=== PATIENT | female | born 1995 | race American Indian/Alaskan Native ===

== ENCOUNTER 2019-01-11 22:17 | Inpatient (IN) | payer BC, OTHER ==
[2019-01-11] MEDS ORDERED: LACTATED RINGERS 1,000 ML ONE (23:03)
[2019-01-11] MEDS ORDERED: LACTATED RINGERS 1,000 ML IV ONE (23:06)
[2019-01-11 23:49] LABS: Bilirubin,Urine NEG (Negative); Blood,Urine NEG (Negative); Color,Urine Yellow (Yellow); Mucus,Urine FEW /HPF; RBC,Urine < 1.0 /HPF (0.0-6.0)
[2019-01-11 23:55] LABS: Amphetamine Screen,Urine PRESUMPTIVE NEGATIVE; Benzodiazepines Screen,Urine PRESUMPTIVE NEGATIVE; Cannabinoid Screen,Urine PRESUMPTIVE NEGATIVE; Cocaine Screen,Urine PRESUMPTIVE NEGATIVE; Methadone Screen,Urine PRESUMPTIVE NEGATIVE; Opiate Screen,Urine PRESUMPTIVE NEGATIVE
[2019-01-12] MEDS ORDERED: ePHEDrine SULFATE 50 MG/1 ML INJ IV PRN (00:07)
[2019-01-12] MEDS ORDERED: LIDOCAINE (2%) 20 MG/1 ML VIAL 20 ML MDV INFILTRATI ONE (00:07)
[2019-01-12] MEDS ORDERED: TERBUTALINE 1 MG/1 ML INJ SUB-Q PRN (00:07)
[2019-01-12] MEDS ORDERED: fentaNYL 100 MCG/2 ML INJ IV PRN (00:07)
--- NOTE | 2019-01-12 00:19 | History and Physical Report ---
History of Present Illness Date of examination: 01/12/19 Date of admission: 01/12/19 Chief complaint: Elevated blood pressure; R/O SROM. History of present illness: 24 year old at 39 5/7 weeks gestation with elevated blood pressure, oligohydramnios, and obesity. Patient complains of possible LOF beginning this evening on several occasions; states she has felt the "leaking" once since she arrived here in L&D. Patient denies vaginal bleeding. Patient reports active movement. Patient denies headaches, visual disturbance, nausea or vomiting, abdominal or epigastric pain. She denies foul smelling vaginal discharge. Denies recent IC. Patient received care at [facility] and was able to access records via computer. LMP 04/09/18. EDC 01/14/19 (confirmed by 9 week, 3 day US). significant for the following: obesity, prehypertension prior to and throughout , elevated blood pressures at term, anemia (supplemented with iron), history of seizures as a child (none since age 16 and not on meds), asthma (uses Proventil inhaler as needed), and GBS positive. labs are as follows: A+, antibody screen negative, rubella immune, hepatitis B surface antigen negative, HIV negative, RPR nonreactive, chlamydia negative, gonorrhea negative, trichomonas negative, GBS positive, hemoglobin electrophoresis normal, quad screen negative, 1 hour sugar test 96. Past History Past Medical History: asthma, seizure (seizure disorder as a child (has not had a seizure or been on seizure meds since age 16)), other (obesity; severe penicillin allergy) Past Surgical History: no surgical history [facility] History: denies: abnormal PAP smear, chlamydia, gonorrhea, hepatitis B, hepatitis C, herpes, HIV, syphilis, trichomonas Family/Genetic History: none Social history: single, lives with family, full code. denies: smoking, alcohol abuse, prescription drug abuse, IV drug use - Obstetrical History Expected Date of Delivery: 01/14/19 Actual Gestation: 39 Week(s) 5 Day(s) : 1 Para: 0 Hx # Term Pregnancies: 0 Number of Pregnancies: 0 Spontaneous Abortions: 0 Induced : 0 Number of Living Children: 0 Medications and Allergies Allergies Allergy/AdvReac Type Severity Reaction Status Date / Time Penicillins Allergy Rash Verified 01/11/19 23:04 sulfur dioxide Allergy Rash Verified 01/11/19 23:04 Active Meds: Active Medications Ephedrine Sulfate (Ephedrine Sulfate) 10 mg IV Q2M PRN PRN Reason: Hypotension Fentanyl (Sublimaze) 100 mcg IV Q2H PRN PRN Reason: Labor Pain Oxytocin/Sodium Chloride (Pitocin/Ns 20 Unit/1000ml Drip) 20 units in 1,000 mls @ 125 mls/hr IV DIRECT ARNOLD Lactated Ringer's (Lactated Ringers) 1,000 mls @ 125 mls/hr IV DIRECT ARNOLD Lidocaine (Xylocaine 2%) 20 ml INFILTRATI ONCE ONE Stop: 01/12/19 00:08 Terbutaline Sulfate (Brethine) 0.25 mg SUB-Q ONCE PRN PRN Reason: Hyperstimulation/Hypertonicity Review of Systems All systems: negative (contractions and possible leaking of water) Gastrointestinal: no abdominal pain, no nausea, no vomiting Genitourinary: leakage of fluid, contractions, no vaginal bleeding, no vaginal discharge (denies foul smelling discharge), no dysuria, no genital sores Neurological: no headaches, no double vision, no loss of vision Allergic/Immunologic: no wheezing - Vital Signs Vital signs: Vital Signs Temp Pulse Resp BP Pulse Ox 98.5 F 87 18 147/78 100 01/11/19 22:30 01/11/19 22:30 01/11/19 22:30 01/11/19 22:30 01/11/19 22:30 Temp Pulse Resp BP Pulse Ox 98.5 F 96 H 18 150/81 93 01/11/19 22:30 01/11/19 23:37 01/11/19 22:30 01/11/19 23:37 01/11/19 23:02 - Physical Exam Cardiovascular: Regular rate, Normal S1, Normal S2, No murmurs Lungs: Positive: Clear to auscultation Abdomen: Positive: normal appearance, soft. Negative: distention, tenderness, guarding, rigidity Genitourinary (Female): Positive: normal external genitalia, normal perenium. Negative: perineal/vulvar lesions (no lesions seen on careful exam with bright light upon admission) Vagina: Positive: normal moisture (speculum exam performed; no pooling; white discharge seen; negative fern test) Uterus: Positive: enlarged (s=d). Negative: tender Anus/Rectum: Positive: normal perianal skin Extremities: Positive: normal, edema (mild edema BLE). Negative: tenderness - Obstetrical FHR: category 2 (mild tachycardia upon presentation (170-180), resolved; brief variable FHR decelerations) Uterine Contraction Monitor Mode: External Cervical Dilatation: 0 Cervical Effacement Percentage: 30 station: -3 Uterine Contraction Pattern: Irregular Uterine Contraction Intensity: Mild Results Result Diagrams: 01/11/19 23:15 01/11/19 23:15 All other labs normal. Assessment and Plan A: at 39 weeks, 5 days gestation. Oligohydramnios. Elevated blood pressures: PIH versus chronic hypertension. Obesity. Maternal fever (100.5) and mild tachycardia ( tachycardia has now resolved). GBS positive. Severe PCN allergy. P: Admit. IV hydration. IV antibiotics (Vancomycin and Gentamicin since severe PCN allergy). PO Tylenol. UA, urine C&S, CBC, GC/CT testing. Continuous EFM. Preeclamptic labs. Serial BP monitoring. Cervical ripening and IOL. GBS prophylaxis (Vancomycin). Discussed with patient in detail risks and benefits of Pitocin cervical ripening and induction of labor. Patient consented to Pitocin cervical ripening and induction of labor. Discussed with patient fever, maternal tachycardia and interventions being undertaken. Consulted with Dr. Hoyt re: this patient, FHR tracing/tachycardia, maternal fever, possible SROM/oligohydramnios, interventions taken and antibiotics ordered. Dr. Hoyt states he agrees with current management plan; he states OK to proceed with low dose Pitocin for cervical ripening at this time. Plan of care also discussed with patient and family.
[2019-01-12] MEDS ORDERED: OXYTOCIN 20 UNIT/1000ML DRIP 20 UNITS/1,000 ML BAG IV SCH (01:00)
[2019-01-12 01:03] LABS: Hemoglobin 11.1 gm/dl (10.1-14.3); Mean Corpuscular HGB Conc 33 % (30-34); Mean Corpuscular Volume 76 fl (79-97); Platelet Count 346 K/mm3 (140-440); Red Blood Count 4.45 M/mm3 (3.65-5.03); Red Cell Distribution Width 14.5 % (13.2-15.2)
[2019-01-12 01:30] LABS: Alanine Aminotransferase 10 units/L (7-56); Albumin 3.3 g/dL (3.9-5); BUN/Creatinine Ratio 9; Blood Urea Nitrogen 6 mg/dL (7-17); Calcium 8.6 mg/dL (8.4-10.2); Hemolysis Index 8
[2019-01-12] MEDS ORDERED: GENTAMICIN 100 MG in SODIUM CHLORIDE 0.9% 100 ML IV SCH (01:30)
[2019-01-12 01:43] LABS: Uric Acid 5.2 mg/dL (3.5-7.6)
[2019-01-12] MEDS ORDERED: ACETAMINOPHEN 325 MG TAB PO ONE (01:49)
--- NOTE | 2019-01-12 01:57 | Ultrasound Report ---
ULTRASOUND OBSTETRIC, LIMITED, WITH BIOPHYSICAL PROFILE INDICATION / CLINICAL INFORMATION: Tachycardia. Clinical Gestational Age (GA): 39 weeks TECHNIQUE: Transabdominal. COMPARISON: None available. FINDINGS: There is a single intrauterine . Heart Rate: 157 beats per minute. Position: cephalic. Placenta: anterior and free of the os. Amniotic Fluid Volume: Low normal Amniotic Fluid Index (ATA) in cm (if calculated): 5.9 cm. Maternal Adnexa: No significant abnormality. Biophysical profile: breathing movements: 2 movements: 2 posture and tone: 2 Qualitative amniotic fluid volume: 0 Total score: 6 out of 8 IMPRESSION: 1. Single, living intrauterine . 2. Limited evaluation with an amniotic fluid index of 5.9 cm, and a biophysical profile of 6 out of 8 . Signer Name: Estefani Preciado MD Signed: 01/12/2019 1:52 AM Workstation Name: [id number]
[2019-01-12] MEDS ORDERED: VANCOMYCIN/NS 1 GM/250 ML 1 GM/250 ML BAG IV SCH (02:00)
[2019-01-12] MEDS: LACTATED RINGERS 1,000 ML IV SCH ×3 (02:04→19:50)
[2019-01-12] MEDS ORDERED: OXYTOCIN DRIP 30 UNITS/500 ML BAG IV SCH (03:00)
[2019-01-12] MEDS ORDERED: GENTAMICIN/NS 100 MG/100 ML 100 MG/100 ML BAG IV SCH (04:00)
[2019-01-12 08:37] LABS: Bacteria,Urine 1+ /HPF (Negative); Bilirubin,Urine NEG (Negative); Blood,Urine NEG (Negative); Color,Urine Straw (Yellow); Mucus,Urine FEW /HPF; Protein,Urine <15 mg/dL mg/dL (Negative); Urobilinogen,Urine < 2.0 mg/dL (<2.0)
--- NOTE | 2019-01-12 09:25 | Progress Note ---
Assessment and Plan A: at 39 5/7 weeks. Oligohydramnios. PIH. Maternal fever (currently has normal temperature), on antibiotics. Obesity. P: Continue IV antibiotics. Continue Pitocin for cervical ripening. Continuous EFM. Vital sign monitoring. Awaiting results of urine C&S and GC/CT testing. Subjective - Subjective Date of service: 01/12/19 Principal diagnosis: at 39 5/7 weeks; oligohydramnios, fever, PIH Interval history: at 39 5/7 weeks is undergoing cervical ripening and induction of labor due to oligohydramnios, fever, and PIH. Patient is receiving IV antibiotics. Urine C&S and GC/CT pending. Flu swab negative. Platelet count and AST/ALT normal. Urine protein is trace to 1+. BPs have been stable overnight and temperature is now normal. FHR tracing is category 1. Patient is receiving low dose Pitocin for cervical ripening and she is having mild irregular contractions. Uterus palpates soft between contractions. Patient states she has not felt any more "fluid" leak from vagina. She denies VB. Patient reports: movement normal, contractions, no new complaints, no loss of fluid, no vaginal bleeding Objective - Vital Signs Vital Signs: Vital Signs - 12hr 01/11/19 01/11/19 01/11/19 22:30 22:32 22:37 Temperature 98.5 F Pulse Rate 87 86 90 Respiratory 18 Rate Blood Pressure 147/78 Blood Pressure 147/78 [Left] O2 Sat by Pulse 100 100 100 Oximetry 01/11/19 01/11/19 01/11/19 22:42 22:47 22:52 Temperature Pulse Rate 93 H 97 H 99 H Respiratory Rate Blood Pressure Blood Pressure [Left] O2 Sat by Pulse 100 100 98 Oximetry 01/11/19 01/11/19 01/11/19 22:57 23:02 23:37 Temperature Pulse Rate 97 H 100 H 96 H Respiratory Rate Blood Pressure 150/81 Blood Pressure [Left] O2 Sat by Pulse 98 93 Oximetry 01/12/19 01/12/19 01/12/19 00:54 01:20 02:28 Temperature 100.5 F H Pulse Rate 90 92 H Respiratory 18 Rate Blood Pressure 136/85 126/61 Blood Pressure [Left] O2 Sat by Pulse Oximetry 01/12/19 01/12/19 01/12/19 04:01 04:04 07:15 Temperature 98.6 F 98.5 F Pulse Rate 84 84 84 Respiratory 18 18 Rate Blood Pressure 126/67 Blood Pressure 126/67 108/67 [Left] O2 Sat by Pulse Oximetry 01/12/19 07:24 Temperature Pulse Rate 84 Respiratory Rate Blood Pressure 108/67 Blood Pressure [Left] O2 Sat by Pulse Oximetry - Exam Abdomen: Present: normal appearance, soft. Absent: distention, tenderness, guarding, rigidity FHR: category 1 Uterine Contraction Monitor Mode: External Uterine Contraction Pattern: Irregular Uterine Contraction Intensity: Mild Extremities: normal - Labs Labs: Abnormal Labs 01/11/19 01/11/19 23:15 23:15 MCV 76 L MCH 25 L BUN 6 L Glucose 108 H Lactate Dehydrogenase 195 H Albumin 3.3 L Laboratory Results - last 24 hr 01/11/19 01/11/19 01/11/19 23:05 23:05 23:15 WBC 8.2 RBC 4.45 Hgb 11.1 Hct 34.0 MCV 76 L MCH 25 L MCHC 33 RDW 14.5 Plt Count 346 Sodium Potassium Chloride Carbon Dioxide Anion Gap BUN Creatinine Estimated GFR BUN/Creatinine Ratio Glucose Uric Acid Calcium Total Bilirubin AST ALT Alkaline Phosphatase Lactate Dehydrogenase Total Protein Albumin Albumin/Globulin Ratio Urine Color Yellow Urine Turbidity Slightly-cloudy Urine pH 6.0 Ur Specific [place] 1.019 Urine Protein 30 mg/dl Urine Glucose (UA) Neg Urine Ketones Neg Urine Blood Neg Urine Nitrite Neg Urine Bilirubin Neg Urine Urobilinogen 2.0 Ur Leukocyte Esterase Sm Urine WBC (Auto) 2.0 Urine RBC (Auto) < 1.0 U Epithel Cells (Auto) 5.0 Urine Bacteria (Auto) Urine Mucus Few Urine Opiates Screen Presumptive negative Urine Methadone Screen Presumptive negative Ur Barbiturates Screen Presumptive negative Ur Phencyclidine Scrn Presumptive negative Ur Amphetamines Screen Presumptive negative U Benzodiazepines Scrn Presumptive negative Urine Cocaine Screen Presumptive negative U Marijuana (THC) Screen Presumptive negative Drugs of Abuse Note Disclamer Influenza A (Rapid) Influenza B (Rapid) Blood Type Antibody Screen 01/11/19 01/11/19 01/12/19 23:15 23:15 07:32 WBC RBC Hgb Hct MCV MCH MCHC RDW Plt Count Sodium 139 Potassium 3.9 Chloride 105.2 Carbon Dioxide 22 Anion Gap 16 BUN 6 L Creatinine 0.7 Estimated GFR > 60 BUN/Creatinine Ratio 9 Glucose 108 H Uric Acid 5.2 Calcium 8.6 Total Bilirubin < 0.20 AST 15 ALT 10 Alkaline Phosphatase 124 Lactate Dehydrogenase 195 H Total Protein 7.2 Albumin 3.3 L Albumin/Globulin Ratio 0.8 Urine Color Urine Turbidity Urine pH Ur Specific [place] Urine Protein Urine Glucose (UA) Urine Ketones Urine Blood Urine Nitrite Urine Bilirubin Urine Urobilinogen Ur Leukocyte Esterase Urine WBC (Auto) Urine RBC (Auto) U Epithel Cells (Auto) Urine Bacteria (Auto) Urine Mucus Urine Opiates Screen Urine Methadone Screen Ur Barbiturates Screen Ur Phencyclidine Scrn Ur Amphetamines Screen U Benzodiazepines Scrn Urine Cocaine Screen U Marijuana (THC) Screen Drugs of Abuse Note Influenza A (Rapid) Negative Influenza B (Rapid) Negative Blood Type A POSITIVE Antibody Screen Negative 01/12/19 07:58 WBC RBC Hgb Hct MCV MCH MCHC RDW Plt Count Sodium Potassium Chloride Carbon Dioxide Anion Gap BUN Creatinine Estimated GFR BUN/Creatinine Ratio Glucose Uric Acid Calcium Total Bilirubin AST ALT Alkaline Phosphatase Lactate Dehydrogenase Total Protein Albumin Albumin/Globulin Ratio Urine Color Straw Urine Turbidity Slightly-cloudy Urine pH 7.0 Ur Specific [place] 1.006 Urine Protein <15 mg/dl Urine Glucose (UA) Neg Urine Ketones Neg Urine Blood Neg Urine Nitrite Neg Urine Bilirubin Neg Urine Urobilinogen < 2.0 Ur Leukocyte Esterase Tr Urine WBC (Auto) 3.0 Urine RBC (Auto) 4.0 U Epithel Cells (Auto) 4.0 Urine Bacteria (Auto) 1+ Urine Mucus Few Urine Opiates Screen Urine Methadone Screen Ur Barbiturates Screen Ur Phencyclidine Scrn Ur Amphetamines Screen U Benzodiazepines Scrn Urine Cocaine Screen U Marijuana (THC) Screen Drugs of Abuse Note Influenza A (Rapid) Influenza B (Rapid) Blood Type Antibody Screen
--- NOTE | 2019-01-12 10:54 | Event Note ---
Date: 01/12/19 Patient remains afebrile. Will discontinue Gentamicin; discussed with nurses and patient and MD. Will continue Vancomycin for GBS prophylaxis.
[2019-01-12] MEDS ORDERED: diphenhydrAMINE 25 MG CAP PO PRN (14:01)
--- NOTE | 2019-01-12 14:04 | Event Note ---
Date: 01/12/19 Patient reports generalized itching and a rash on both legs. Rash resembles hives, present on both lower extremities. Possible allergy to Vancomycin. Discontinued Vancomycin due to possible allergic reaction. Patient states she has taken Clindamycin in the past and has never had any reaction to it. Clindamycin ordered. Nurses and patient informed.
--- NOTE | 2019-01-12 15:04 | Event Note ---
Date: 01/12/19 SVE 2.
[2019-01-12] MEDS: OXYTOCIN DRIP 30 UNITS/500 ML BAG IV SCH ×3 (17:30→18:51)
--- NOTE | 2019-01-13 02:15 | Event Note ---
Date: 01/13/19 Patient is receiving Pitocin for cervical ripening and induction of labor. Cervix is now 1/70/-2. Contractions are every 2-3 minutes and palpate mild to moderate. Uterus palpates soft between contractions. Reassuring heart rate tracing. Patient is receiving Clindamycin. Current temp. is 98.7 degrees orally. No leaking of fluid or vaginal bleeding seen. Fetus is moving well.
--- NOTE | 2019-01-13 05:54 | Event Note ---
Date: 01/13/19 Patient reports she now feels contractions about every 3 minutes and they are beginning to hurt. Denies any leakage of fluid or VB. Pt. remains afebrile. SVE 1.5/70/-2/much softer than last exam. Contractions every 2-3 minutes. Uterus palpates soft between contractions. Minimal variability now noted, normal FHR baseline, 3 late decelerations noted. Patient repositioned into right lateral position and oxygen applied per face mask. Pitocin discontinued. Updated Dr. Hoyt on patient status and interventions taken. Will observe closely for resol ution.
[2019-01-13] MEDS: LACTATED RINGERS 1,000 ML IV SCH (05:58)
[2019-01-13] MEDS: OXYTOCIN DRIP 30 UNITS/500 ML BAG IV SCH (09:15)
[2019-01-13] MEDS ORDERED: ALBUTEROL 8.5 GM INHALATION IH PRN (09:41)
--- NOTE | 2019-01-13 09:52 | Progress Note ---
Subjective - Subjective Date of service: 01/13/19 Principal diagnosis: at 39 5/7 weeks; oligohydramnios, fever, PIH Interval history: Patient seen and examined on AM rounds. She is sitting up, comfortable, oxytocin off. no complaints. O:(see below) Cervix 1cm/long (~4cm)/-3 FHT at bedside, tracing reassuring. 150 baseline, +ve accelerations. Review of tracing reveals occasional late decelerations to a nidus of 120bpm lasting < 1 minute with return to baseline. Vital Signs - 12hr 01/12/19 01/12/19 01/13/19 22:28 23:43 05:57 Temperature Pulse Rate 88 90 88 Respiratory Rate Blood Pressure 129/70 116/71 121/69 O2 Sat by Pulse Oximetry 01/13/19 01/13/19 01/13/19 07:20 08:00 08:46 Temperature 98.7 F Pulse Rate 78 88 Respiratory 14 Rate Blood Pressure 130/73 O2 Sat by Pulse 96 Oximetry 01/13/19 01/13/19 01/13/19 08:51 08:56 08:59 Temperature Pulse Rate 85 82 78 Respiratory Rate Blood Pressure 121/69 O2 Sat by Pulse 98 99 Oximetry 01/13/19 01/13/19 01/13/19 09:01 09:10 09:15 Temperature Pulse Rate 84 110 H 77 Respiratory Rate Blood Pressure O2 Sat by Pulse 99 99 99 Oximetry 01/13/19 01/13/19 01/13/19 09:20 09:25 09:30 Temperature Pulse Rate 81 82 90 Respiratory Rate Blood Pressure O2 Sat by Pulse 99 99 98 Oximetry 01/13/19 01/13/19 09:37 09:42 Temperature Pulse Rate 79 94 H Respiratory Rate Blood Pressure O2 Sat by Pulse 98 99 Oximetry A: IOL P: Maternal/ well being reassuring overall. Plan for cervidil x1. Discussed with Pharmacy: patient report PMHX of asthma however she only occasionally uses an albuterol inhaler and has not had need for use for over one month. Cervidil use with caution in Asthma patients. Plan for bedside nebulizer and close monitoring of patient. I feel that patient requires cervical softening with cervidil. I believe she will not progress with her IOL oxytocin alone. I discussed this plan of care with patient, her mother at bedside and appropriate CNM and labor nursing staff. I also explained to patient and family that if cervidil is not successful we will proceed to delivery. Jorge L ALANIZ Patient reports: movement normal, contractions, no new complaints, no loss of fluid, no vaginal bleeding Objective - Vital Signs Vital Signs: Vital Signs - 12hr 01/12/19 01/12/19 01/13/19 22:28 23:43 05:57 Temperature Pulse Rate 88 90 88 Respiratory Rate Blood Pressure 129/70 116/71 121/69 O2 Sat by Pulse Oximetry 01/13/19 01/13/19 01/13/19 07:20 08:00 08:46 Temperature 98.7 F Pulse Rate 78 88 Respiratory 14 Rate Blood Pressure 130/73 O2 Sat by Pulse 96 Oximetry 01/13/19 01/13/19 01/13/19 08:51 08:56 08:59 Temperature Pulse Rate 85 82 78 Respiratory Rate Blood Pressure 121/69 O2 Sat by Pulse 98 99 Oximetry 01/13/19 01/13/19 01/13/19 09:01 09:10 09:15 Temperature Pulse Rate 84 110 H 77 Respiratory Rate Blood Pressure O2 Sat by Pulse 99 99 99 Oximetry 01/13/19 01/13/19 01/13/19 09:20 09:25 09:30 Temperature Pulse Rate 81 82 90 Respiratory Rate Blood Pressure O2 Sat by Pulse 99 99 98 Oximetry 01/13/19 01/13/19 09:37 09:42 Temperature Pulse Rate 79 94 H Respiratory Rate Blood Pressure O2 Sat by Pulse 98 99 Oximetry - Labs Labs: Abnormal Labs 01/11/19 01/11/19 23:15 23:15 MCV 76 L MCH 25 L BUN 6 L Glucose 108 H Lactate Dehydrogenase 195 H Albumin 3.3 L Laboratory Results - last 24 hr 01/11/19 23:15 RPR Nonreactive
[2019-01-13] MEDS ORDERED: BICITRA ORAL LIQD 30ML PO ONE (10:17)
[2019-01-13] MEDS ORDERED: FAMOTIDINE 20 MG/2 ML INJ IV ONE ×2 (10:17→10:19)
[2019-01-13] MEDS ORDERED: METOCLOPRAMIDE 10 MG/2 ML INJ IV ONE (10:17)
[2019-01-13] MEDS ORDERED: GENTAMICIN 400 MG in SODIUM CHLORIDE 0.9% 100 ML IV NR (10:17)
--- NOTE | 2019-01-13 10:18 | Anesthesia Consultation ---
Anesthesia Consult and Med Hx Date of service: 01/13/19 - Airway Anesthetic Teeth Evaluation: Good ROM Head & Neck: Adequate Mental/Hyoid Distance: Adequate Mallampati Class: Class II Intubation Access Assessment: Probably Good - Pulmonary Exam CTA: Yes - Cardiac Exam Cardiac Exam: RRR - Pre-Operative Health Status ASA Pre-Surgery Classification: ASA3, Emergency Proposed Anesthetic Plan: Spinal - Pulmonary Hx Asthma: Yes (Albuterol PRN- last taken 12/2018) COPD: No Hx Pneumonia: No - Cardiovascular System Hx Hypertension: Yes (Prehypertension - no meds) - Central Nervous System Hx Seizures: Yes (last @ 16y/o) Hx Psychiatric Problems: No - Endocrine Hx Renal Disease: No Hx End Stage Renal Disease: No Hx Hypothyroidism: No Hx Hyperthyroidism: No - Hematic Hx Anemia: Yes Hx Sickle Cell Disease: No - Other Systems Hx Alcohol Use: Yes (Socially) Hx Obesity: No
[2019-01-13] MEDS ORDERED: METOCLOPRAMIDE 10 MG/2 ML INJ ONE (10:19)
[2019-01-13] MEDS ORDERED: BICITRA ORAL LIQD 30ML ONE (10:19)
--- NOTE | 2019-01-13 10:19 | Anesthesia Day of Surgery ---
Anesthesia Day of Surgery - Day of Surgery Patient Examined: Yes Patient H&P Reviewed: Yes Patient is NPO: Yes
--- NOTE | 2019-01-13 10:25 | Progress Note ---
Subjective - Subjective Date of service: 01/13/19 Principal diagnosis: at 39 5/7 weeks; oligohydramnios, fever, PIH Interval history: Patient seen and examined on AM rounds. She is sitting up, comfortable, oxytocin off. no complaints. O:(see below) Cervix 1cm/long (~4cm)/-3 FHT at bedside, tracing reassuring. 150 baseline, +ve accelerations. Review of tracing reveals occasional late decelerations to a nidus of 120bpm lasting < 1 minute with return to baseline. Vital Signs - 12hr 01/12/19 01/12/19 01/13/19 22:28 23:43 05:57 Temperature Pulse Rate 88 90 88 Respiratory Rate Blood Pressure 129/70 116/71 121/69 O2 Sat by Pulse Oximetry 01/13/19 01/13/19 01/13/19 07:20 08:00 08:46 Temperature 98.7 F Pulse Rate 78 88 Respiratory 14 Rate Blood Pressure 130/73 O2 Sat by Pulse 96 Oximetry 01/13/19 01/13/19 01/13/19 08:51 08:56 08:59 Temperature Pulse Rate 85 82 78 Respiratory Rate Blood Pressure 121/69 O2 Sat by Pulse 98 99 Oximetry 01/13/19 01/13/19 01/13/19 09:01 09:10 09:15 Temperature Pulse Rate 84 110 H 77 Respiratory Rate Blood Pressure O2 Sat by Pulse 99 99 99 Oximetry 01/13/19 01/13/19 01/13/19 09:20 09:25 09:30 Temperature Pulse Rate 81 82 90 Respiratory Rate Blood Pressure O2 Sat by Pulse 99 99 98 Oximetry 01/13/19 01/13/19 09:37 09:42 Temperature Pulse Rate 79 94 H Respiratory Rate Blood Pressure O2 Sat by Pulse 98 99 Oximetry A: IOL P: Maternal/ well being reassuring overall. Plan for cervidil x1. Discussed with Pharmacy: patient report PMHX of asthma however she only occasionally uses an albuterol inhaler and has not had need for use for over one month. Cervidil use with caution in Asthma patients. Plan for bedside nebulizer and close monitoring of patient. I feel that patient requires cervical softening with cervidil. I believe she will not progress with her IOL oxytocin alone. I discussed this plan of care with patient, her mother at bedside and appropriate CNM and labor nursing staff. I also explained to patient and family that if cervidil is not successful we will proceed to delivery. Jorge L ALANIZ I was called for NRFHT with sinusoidal component. I called for STAT section. At bedside patient gives verbal informed consent to surgical delivery and blood products. All questions and concerns addressed. Anesthesia notified. Hb 11.1 Planned Procedure: Primary LTCS via pfannenstiel incision Surgeon: Meg Daivson MD Patient reports: movement normal, contractions, no new complaints, no loss of fluid, no vaginal bleeding Objective - Vital Signs Vital Signs: Vital Signs - 12hr 01/12/19 01/12/19 01/13/19 22:28 23:43 05:57 Temperature Pulse Rate 88 90 88 Respiratory Rate Blood Pressure 129/70 116/71 121/69 O2 Sat by Pulse Oximetry 01/13/19 01/13/19 01/13/19 07:20 08:00 08:46 Temperature 98.7 F Pulse Rate 78 88 Respiratory 14 Rate Blood Pressure 130/73 O2 Sat by Pulse 96 Oximetry 01/13/19 01/13/19 01/13/19 08:51 08:56 08:59 Temperature Pulse Rate 85 82 78 Respiratory Rate Blood Pressure 121/69 O2 Sat by Pulse 98 99 Oximetry 01/13/19 01/13/19 01/13/19 09:01 09:10 09:15 Temperature Pulse Rate 84 110 H 77 Respiratory Rate Blood Pressure O2 Sat by Pulse 99 99 99 Oximetry 01/13/19 01/13/19 01/13/19 09:20 09:25 09:30 Temperature Pulse Rate 81 82 90 Respiratory Rate Blood Pressure O2 Sat by Pulse 99 99 98 Oximetry 01/13/19 01/13/19 01/13/19 09:37 09:42 09:47 Temperature Pulse Rate 79 94 H 89 Respiratory Rate Blood Pressure O2 Sat by Pulse 98 99 98 Oximetry 01/13/19 01/13/19 01/13/19 09:52 09:57 09:59 Temperature Pulse Rate 85 77 85 Respiratory Rate Blood Pressure 125/78 O2 Sat by Pulse 100 100 Oximetry 01/13/19 01/13/19 01/13/19 10:02 10:07 10:12 Temperature Pulse Rate 78 97 H 79 Respiratory Rate Blood Pressure O2 Sat by Pulse 100 100 100 Oximetry 01/13/19 10:17 Temperature Pulse Rate 86 Respiratory Rate Blood Pressure O2 Sat by Pulse 100 Oximetry - Labs Labs: Abnormal Labs 01/11/19 01/11/19 23:15 23:15 MCV 76 L MCH 25 L BUN 6 L Glucose 108 H Lactate Dehydrogenase 195 H Albumin 3.3 L Laboratory Results - last 24 hr 01/11/19 23:15 RPR Nonreactive
[2019-01-13] MEDS ORDERED: WATER FOR IRRIG STERILE 1,500 ML BOTTLE IR ONE (10:40)
[2019-01-13] MEDS ORDERED: SODIUM CHLORIDE 0.9% IRR 1,500 ML BOTTLE IR ONE (10:40)
[2019-01-13] MEDS ORDERED: OXYTOCIN 20 UNIT/1000ML DRIP 20 UNITS/1,000 ML BAG IV SCH ×2 (11:00→15:00)
[2019-01-13] MEDS ORDERED: LACTATED RINGERS 1,000 ML IV SCH (11:00)
--- NOTE | 2019-01-13 11:28 | Procedure Note ---
OB Delivery Note - Delivery Date of Delivery: 01/13/19 Surgeon: LANEY GUTIERREZ Estimated blood loss: 500cc - Section Preop diagnosis: nonreassuring FHR tracing Postop diagnosis: same section procedure: primary low transverse Disposition: PACU Complications: none Narrative: Preoperative diagnosis: IUP at 39+4/7 weeks, failed IOL with NRFHT Postoperative diagnosis: same Procedure: Primary Low Transverse section via Pfannenstiel incision Surgeon: Dr Laney Gutierrez Assist: Scrub Anesthesia: Spinal Findings: viable female, weight 3312gms and 8/9. Normal Uterus, tubes and ovaries bilaterally. Complications:none Drains: [place] to gravity EBL: 500mL IV Fluids: 500ml Urine Output:100ml Procedure: Patient gave informed consent in OB room 2011. All questions and concerns addressed. R/B/C reviewed. She was taken to the OR where excellent spinal epidural anesthesia was confirmed. She was placed in the dorsal supine position with a leftward tilt. She was prepped and draped in a sterile fashion. A time out was verified. An Cindy clamp was used to assure adequate analgesia. A Pfannenstiel skin incision was made, taken down through the underlying fascia sharply and extended laterally with curved Luu scissors. The superior and inferior aspect of the fascial incision was grasped with Keaton clamps and the rectus muscles dissected off sharply. The abdomen was entered sharply in the midline and extended laterally and inferiorly sharply with good visualization of the underlying structures.A bladder blade was inserted. The uterine incision was made sharply with a scalpel, taken down to the amnion and extended inferiorly and superiorly bluntly. The bladder blade removed and the baby delivered atraumatically. No nuchal cord, spontaneous cry at delivery. Cord clamped and cut and baby handed to waiting cloth sponger staff. Cord gasses obtained. An i ntact placenta with three vessel cord delivered manually. The uterus cleared of all clots and debris. The uterus was exteriorized. The uterine incision closed with 2 layers of 0-Vicryl. The abdomen was irrigated with warm normal saline and the uterus placed back into the abdomen. A second look at the uterine incision assured excellent hemostasis. The peritoneum was closed with 3-0 Vicryl, the fascia closed with 0-Vicryl in the usual fashion, the rectus muscles approximated with 3-0 Vicryl and the underlying structures closed with interrupted suture of O-Vicryl. The skin closed with eva and a pressure dressing applied. All sponge and needle counts correctx3. Mom and baby stable to . EBL 500ml. Urine output confirmed clear and adequate at completion of procedure. Jorge L ALANIZ
[2019-01-13] MEDS ORDERED: DEXMEDETOMIDINE 200 MCG/2 ML VIAL IV ONE (11:31)
[2019-01-13] MEDS ORDERED: OXYTOCIN 10 UNIT/1 ML INJ ONE (11:31)
[2019-01-13] MEDS ORDERED: BUPIVACAINE/PF (0.5%) 5 MG/1 ML 30 ML VIAL INFILTRATI ONE (11:31)
[2019-01-13] MEDS ORDERED: ONDANSETRON 4 MG/2 ML INJ ONE (11:31)
--- NOTE | 2019-01-13 11:45 | Post Anesthesia Evaluation ---
- Post Anesthesia Evaluation Patient Participated: Yes Airway Patent: Yes Stable Respiratory Function: Yes Nausea/Vomiting: No Temp > 96.8F: Yes Pain Manageable: Yes Adequeate Hydration: Yes Anesthesia Complications: No Block Receding Appropriately: Yes
[2019-01-13] MEDS ORDERED: ONDANSETRON 4 MG/2 ML INJ IV PRN ×2 (11:46→14:01)
[2019-01-13] MEDS ORDERED: PROMETHAZINE 25 MG TAB PO PRN (11:46)
[2019-01-13] MEDS ORDERED: NalbUPHINE 10 MG/1 ML INJ IV PRN (11:46)
[2019-01-13] MEDS ORDERED: PROMETHAZINE 25 MG RECT SUPP PR PRN ×2 (11:46→14:01)
[2019-01-13] MEDS ORDERED: IBUPROFEN 800 MG TAB PO SCH (12:00)
[2019-01-13 13:55] LABS: Basophils % (Auto) 0.5 % (0.0-1.8); Eosinophils # (Auto) 0.1 K/mm3 (0.0-0.4); Eosinophils % (Auto) 1.3 % (0.0-4.3); Hematocrit 29.9 % (30.3-42.9); Hemoglobin 9.8 gm/dl (10.1-14.3); Lymphocytes # (Auto) 1.1 K/mm3 (1.2-5.4); Lymphocytes % (Auto) 15.2 % (13.4-35.0); Mean Corpuscular HGB Conc 33 % (30-34); Mean Corpuscular Volume 76 fl (79-97); Monocytes # (Auto) 0.3 K/mm3 (0.0-0.8); Monocytes % (Auto) 4.3 % (0.0-7.3); Platelet Count 283 K/mm3 (140-440); Red Blood Count 3.95 M/mm3 (3.65-5.03); Red Cell Distribution Width 14.6 % (13.2-15.2)
[2019-01-13] MEDS ORDERED: ALBUTEROL 2.5 MG/3 ML NEBU IH PRN (14:00)
[2019-01-13] MEDS ORDERED: MAGNESIUM HYDROXIDE (MOM) ORAL LIQD UDC PO PRN (14:01)
[2019-01-13] MEDS ORDERED: NALOXONE 0.4 MG/1 ML INJ IV PRN (14:01)
[2019-01-13] MEDS ORDERED: WITCH HAZEL/ GLYCERIN PAD TP PRN (14:01)
[2019-01-13] MEDS ORDERED: KETOROLAC 30 MG/1 ML INJ IV PRN (14:01)
[2019-01-13] MEDS ORDERED: LANOLIN/ZINC/DIMETHICONE (LANSINOH) 7 GM TP PRN (14:01)
[2019-01-13] MEDS ORDERED: ACETAMINOPHEN 325 MG TAB PO PRN (14:01)
[2019-01-13] MEDS: KETOROLAC 30 MG/1 ML INJ IV PRN ×2 (14:37→22:15)
[2019-01-13] MEDS ORDERED: D5W/LACTATED RINGERS 1,000 ML IV SCH (15:00)
[2019-01-13] MEDS: MORPHINE 4 MG/1 ML INJ IV PRN ×2 (15:55→20:16)
[2019-01-14] MEDS: MORPHINE 4 MG/1 ML INJ IV PRN (00:18)
[2019-01-14 01:41] LABS: Hemoglobin 9.5 gm/dl (10.1-14.3)
[2019-01-14] MEDS: KETOROLAC 30 MG/1 ML INJ IV PRN ×2 (04:06→12:23)
[2019-01-14] MEDS: ACETAMINOPHEN 500 MG TAB PO SCH ×4 (06:00→18:39)
[2019-01-14] MEDS: FERROUS SULFATE 325 MG TAB PO SCH ×2 (10:00→22:06)
--- NOTE | 2019-01-14 10:45 | Progress Note ---
Assessment and Plan - Patient Problems (1) S/P primary low transverse Current Visit: Yes Status: Acute Plan to address problem: Continue routine PP orders Keep incision dry and intact Anticipate d/c home in 48 hrs (2) Anemia Current Visit: Yes Status: Acute Qualifiers: Anemia type: other cause Other causes of anemia: acute posthemorrhagic Qualified Code(s): D62 - Acute posthemorrhagic anemia Plan to address problem: Asymptomatic Ferrous sulfate 325mg po BID Increase iron rich foods into diet Subjective - Subjective Date of service: 01/14/19 Principal diagnosis: at 39 5/7 weeks; oligohydramnios, fever, PIH Interval history: See admission H & P; OB operative note and PP progress note Patient reports: appetite normal, voiding normally, pain well controlled (with medications), flatus, ambulating normally, no bowel movement : doing well, bottle feeding (and ) Objective - Vital Signs Latest vital signs: Vital Signs Temp Pulse Resp BP BP Pulse Ox 01/14/19 07:28 98.3 F 82 16 120/72 97 01/14/19 06:35 84 01/14/19 04:55 112 H 01/14/19 04:54 98.2 F 120 H 20 98/56 98 01/14/19 00:00 98.2 F 85 20 120/79 99 01/13/19 19:53 98.2 F 90 20 129/76 99 01/13/19 13:44 97.7 F 64 19 127/79 99 01/13/19 12:45 98.2 F 66 17 126/76 99 01/13/19 12:30 72 11 L 123/60 98 01/13/19 12:15 64 16 119/78 97 01/13/19 12:00 65 17 114/71 97 01/13/19 11:55 64 19 112/68 96 01/13/19 11:50 66 18 112/64 96 01/13/19 11:45 97.9 F 68 17 109/60 97 01/13/19 11:40 97.9 F 73 21 122/49 99 Intake and Output 01/13/19 01/14/19 01/14/19 23:59 07:59 15:59 Intake Total 420 240 121.667 Output Total 400 700 Balance 20 -460 121.667 Intake: IV 1.667 CLEOCIN 900 MG/50 mL 900 1.667 mg In 50 ml @ 100 mls/hr IV Q8H [facility] Rx#:[id number] Oral 420 240 120 Output: Urine 400 700 Indwelling Catheter 400 600 Void 100 Other: Total, Intake Amount 120 240 120 Total, Output Amount 400 100 # Voids Indwelling Catheter 2 Void 1 Estimated Blood Loss 500 - Exam Breasts: Present: normal Cardiovascular: Present: Regular rate Lungs: Present: Normal air movement Abdomen: Present: soft, tenderness Uterus: Present: firm, fundal height at umbilicus Extremities: Present: normal Deep Tendon Reflex Grade: Normal +2 Incision: Present: dressed (no shawdow drainage or bleeding noted) - Labs Labs: Abnormal lab results 01/13/19 01/14/19 Range/Units 13:35 01:22 Hgb 9.8 L 9.5 L (10.1-14.3) gm/dl Hct 29.9 L 29.0 L (30.3-42.9) % MCV 76 L (79-97) fl MCH 25 L (28-32) pg Lymph # 1.1 L (1.2-5.4) K/mm3 Seg Neutrophils % 78.7 H (40.0-70.0) %
[2019-01-14] MEDS: HYDROcodone/ACETAMINOPHEN 5-325 MG TAB PO PRN ×2 (15:59→23:21)
[2019-01-14] MEDS: IBUPROFEN 800 MG TAB PO PRN (23:21)
[2019-01-15] MEDS: IBUPROFEN 800 MG TAB PO PRN (05:46)
[2019-01-15] MEDS: ACETAMINOPHEN 500 MG TAB PO SCH ×2 (06:09)
[2019-01-15] MEDS: HYDROcodone/ACETAMINOPHEN 5-325 MG TAB PO PRN (10:04)
[2019-01-15] MEDS: FERROUS SULFATE 325 MG TAB PO SCH (10:05)
--- NOTE | 2019-01-15 10:52 | Progress Note ---
Assessment and Plan A: POD #2 Asymptomatic Anemia P: Follow Routine PostOp Orders Continue FeSO4 D/C home today per patient request RTO in One Week Subjective - Subjective Date of service: 01/15/19 Principal diagnosis: at 39 5/7 weeks; oligohydramnios, fever, PIH Patient reports: appetite normal, voiding normally, pain well controlled [place]: doing well, bottle feeding (and ) Objective - Vital Signs Latest vital signs: Vital Signs Temp Pulse Resp BP BP Pulse Ox 01/15/19 08:20 97.8 F 94 H 18 116/79 99 01/15/19 05:46 18 01/15/19 00:00 98.7 F 77 16 114/74 01/14/19 23:21 18 01/14/19 15:40 98.2 F 108 H 20 118/66 99 Intake and Output 01/14/19 01/15/19 01/15/19 22:59 06:59 14:59 Intake Total 240 200 Balance 240 200 Intake: Oral 240 200 Other: Total, Intake Amount 240 200 # Voids Void 1 1 - Exam Breasts: Present: normal Cardiovascular: Present: Regular rate Lungs: Present: Clear to auscultation, Normal air movement Abdomen: Present: normal appearance, soft, normal bowel sounds Uterus: Present: normal, firm, fundal height below umbilicus Extremities: Present: normal Incision: Present: normal, dry, intact, other (eva in place)
[2019-01-15 13:21] VITALS: BP 104/51
== END 2019-01-15 14:55 | disposition home or self-care (01) | DRG 787 ==
LOC: TRG 22:17 → LD 01-12 01:18 → OB 01-13 13:25
PROVIDERS: ADMIT Obstetrics & Gynecology; ATTEND Obstetrics & Gynecology
PROC: 10D00Z1 Extraction of Products of Conception, Low, Open Approach (ICD-10-PCS; principal; 2019-01-13)
DX: O41.03X0 Oligohydramnios, third trimester, not applicable or unspecified (principal); D62 Acute posthemorrhagic anemia; O61.9 Failed induction of labor, unspecified; Z3A.39 39 weeks gestation of pregnancy; Z37.0 Single live birth; O99.214 Obesity complicating childbirth; O99.52 Diseases of the respiratory system complicating childbirth; O99.824 Streptococcus B carrier state complicating childbirth; O76 Abnormality in fetal heart rate and rhythm complicating labor and delivery; J45.909 Unspecified asthma, uncomplicated; O90.81 Anemia of the puerperium
CPT/HCPCS: 36415; 76815; 76819; 80053; 80307; 81001; 82803; 83615; 84550; 85014; 85018; 85025; 85027; 86592; 86850; 86900; 86901; 87086; 87400; 87591; 88307; G0378; A6250; J1580; J1885; J2270; J2405; J2590; J2765; J3370; J3490; J7120